=== PATIENT | female | born 1960 | race Caucasian/White ===

== ENCOUNTER → 2019-04-19 | Outpatient (CLI) | payer BC ==
[~2019-04-19] MED LIST: GADOTERATE 5 MMOL/10ML VIAL. IVP ONE; HYDR12.575 PO; LEVO25TA4 PO
--- NOTE | 2019-04-19 16:10 | KCIC ---
MRI Brain with and without contrast History: Acute right sided hearing loss the last 2-3 weeks Technique: Multiplanar, multi sequential pre and postcontrast MR imaging was performed of the brain. Comparison: None Findings: There is no evidence of recent infarct or cytotoxic edema. The ventricles, sulci, and cisterns are within normal limits in size and configuration. There is no significant midline shift, intraaxial mass effect, or focal abnormal extra-axial fluid collection. There is no significant signal abnormality of the brain parenchyma other than a small focus of hemosiderin deposition of the medial right temporal lobe. There is no nodular parenchymal or leptomeningeal enhancement. There is preservation of the major intracranial flow-voids at the skull base. The cerebellar tonsils are normal in location. There is no significant abnormality of the pineal gland or pituitary gland. There is left maxillary sinus mucous retention cyst about 1.3 cm, also likely focus of the right about 1 cm. There is mild maxillary sinus mucosal thickening, patchy moderate to severe ethmoid air cell mucosal thickening greater anteriorly, and mild right frontal sinus mucosal thickening. The mastoid air cells are mostly aerated other than some fluid signal change medially on the left.There is preserved marrow signal of the clivus. There is degenerative disc disease and spondylosis of visualized C3-4 level, likely central canal stenosis at this level about 6 to 7 mm. There is no nodular enhancement of the cerebellopontine angles or the internal auditory canals. Impression: 1. There is no significant intracranial abnormality. There is no nodular enhancement of the cerebellopontine angles or the internal auditory canals. 2. There is degenerative disc disease and spondylosis as well as spinal stenosis at the visualized C3-4 level. 3. There is paranasal sinus mucosal thickening as stated greatest of the ethmoid air cells anteriorly. Electronically signed by: Andrews Chambers MD (04/19/2019 4:07 PM) [id number]
== END | disposition home or self-care (01) ==
LOC: KCIC MRI 14:23
PROVIDERS: ATTEND Specialist
DX: J34.1 Cyst and mucocele of nose and nasal sinus (principal); J34.89 Other specified disorders of nose and nasal sinuses; H91.21 Sudden idiopathic hearing loss, right ear; M50.31 Other cervical disc degeneration, high cervical region; M48.02 Spinal stenosis, cervical region; M47.812 Spondylosis without myelopathy or radiculopathy, cervical region
CPT/HCPCS: 70553; A9575